=== PATIENT | female | born 1945 | race African-American/Black ===

== ENCOUNTER 2019-11-11 12:14 | Emergency (ER) | payer MEDICARE, SELFPAY ==
[2019-11-11 12:26] VITALS: BP 123/67; PULSE 65; RESP 18; TEMP 36.8; O2SAT 100
--- NOTE | 2019-11-11 12:30 | ED.GENADULT ---
HPI - General Adult General Chief complaint: Ear Stated complaint: foreign object right ear Time Seen by Provider: 11/11/19 12:30 Source: patient and RN notes reviewed Mode of arrival: ambulatory Limitations: no limitations History of Present Illness HPI narrative: 73-year-old -[place] female presents with complaints of RT ear with foreign body with mild pain for 1 day. No treatment. Tonya says she was cleaning out her ear with a q-tip and when she pulled out the q-tip the cotton part was not there. Denies trauma or injury to ear. Denies bleeding, increase hearing loss, or a sense of ear fullness. Denies cough, rhinorrhea, congestion, and sore throat. Denies ear drainage or tinnitus. No high fevers or chills. Denies syncopal episodes, and dizziness. Tolerating po intake well. Remains active. The patient reports she have not been diagnosed with COVID-19. The patient reports she is not waiting for the results of a COVID-19 lab test. The patient reports she do not have fever, chills, weakness, fatigue, myalgia, or facial swelling. The patient reports she do not have a new or worsening cough or shortness of breath. Denies chest pain. The patient reports she do not have any rhinorrhea, congestion, sore throat, nausea, vomiting, abdominal pain, and diarrhea. Denies recent traveling. Denies concerns for COVID-19 or exposures been home with limited outdoor exposure except for essential household needs and return home. At this time, patient is not suspected of having COVID-19. Some parts of this dictation were generated by voice recognition software and may contain typographical and/or grammatical inaccuracies. Related Data Home Medications Medication Instructions Recorded Confirmed amlodipine 5 mg tablet 5 mg PO DAILY 02/24/19 aspirin 81 mg tablet,delayed 81 mg PO DAILY 02/24/19 release atorvastatin 10 mg tablet 10 mg PO DAILY 02/24/19 metoprolol tartrate 25 mg tablet 25 mg PO DAILY 02/24/19 Allergies Allergy/AdvReac Type Severity Reaction Status Date / Time No Known Allergies Allergy Mild Unverified 10/07/12 14:19 Review of Systems Review of Systems: Narrative: CONSTITUTIONAL: Denies fever, chills, sweats. EYES: Denies visual changes, redness, discharge. ENT: Denies sore throat, ear drainage, rhinorrhea, congestion. Complains of foreign body to RT ear. CARDIOVASCULAR: Denies chest pain, palpitations, edema. RESPIRATORY: Denies dyspnea, wheezing, cough. GASTROINTESTINAL: Denies abdominal pain, nausea, vomiting, diarrhea. GENITOURINARY: Denies dysuria, hematuria, abnormal discharge. SKIN: Denies rash or itching. MUSCULOSKELETAL: Denies acute back pain, joint pain, or myalgia. NEUROLOGIC: Denies numbness or focal weakness. PSYCHIATRIC: Denies anxiety or depression. All systems reviewed & are unremarkable except as noted in HPI and below. [facility] Past Medical History Medical History (Updated 11/11/19 @ 12:46 by ARIELLE Peters) Chronic anterior ethmoidal sinusitis Chronic cough Chronic hypertension Hypersomnia Hypoventilation Neck mass Surgical History Surgical History (Updated 11/11/19 @ 12:36 by ARIELLE Peters) History of open heart surgery Quadruple bypass Family History Family History Sibling Patient's sister is in good health Patient's brother is in good health Mother Family history of chronic obstructive pulmonary disease Patient's mother is Social History Social History Smoking status: Former smoker Second hand tobacco smoke exposure: No Smoking end date: 04/08/93 Alcohol intake: never Substance use: never Substance use type: does not use Gender identity (if verbalized by the patient): Female Comments At time of signature, I have reviewed and agree with nursing past medical, surgical, social, and family history.
== END 2019-11-11 12:49 | disposition home or self-care (01) ==
PROVIDERS: Emergency Provider Nurse Practitioner Family; PCP Family Medicine
DX: T16.1XXA Foreign body in right ear, initial encounter (principal); Z79.82 Long term (current) use of aspirin; Z87.891 Personal history of nicotine dependence
CPT/HCPCS: 69200; 99212; G0463

== ENCOUNTER 2021-02-03 14:49 | Outpatient (CLI) | payer MEDICARE, SELFPAY ==
--- NOTE | ~2021-02-03 | XR_ITS ---
XR hip BI 2V w AP pelvis 02/03/2021 15:15 Indication: Hip pain Procedure: AP pelvis and 2 views each hip Comparison: 04/27/2005 Findings: There is mild lumbar spondylosis. There is moderate bilateral osteoarthritis of the hips. P elvic rings are intact. Sacral foramen are symmetric. No fracture or traumatic malalignment. Impression: 1: Moderate osteoarthritis of the hips. Reviewed, dictated and finalized at location A. Impression: 1: Moderate osteoarthritis of the hips.
== END 2021-02-03 14:50 | disposition home or self-care (01) ==
LOC: ANHIMG 14:55
PROVIDERS: PCP Family Medicine; Visit Provider Physician Assistant
DX: M25.551 Pain in right hip (principal); M25.552 Pain in left hip; M54.50 Low back pain, unspecified; W19.XXXA Unspecified fall, initial encounter; M16.0 Bilateral primary osteoarthritis of hip
CPT/HCPCS: 73521

== ENCOUNTER 2021-09-03 17:17 | Emergency (ER) | payer MEDICARE, SELFPAY ==
[2021-09-03 17:25] VITALS: BP 134/72; PULSE 90; RESP 20; TEMP 38.7; O2SAT 99
--- NOTE | 2021-09-03 17:32 | ED.URI ---
HPI - URI/Sore Throat General Chief Complaint: Upper Respiratory Infection Stated Complaint: Cough,Weak Time Seen by Provider: 09/03/21 17:32 Source: patient Mode of arrival: ambulatory Limitations: no limitations History of Present Illness HPI Narrative: 75-year-old female presents with complaint of nasal congestion, cough, body aches, chills, fatigue. Symptoms started yesterday. Denies chest pain and shortness of breath. Has not taken any [id number] medications to treat her symptoms. States that she has been sleeping a lot. All systems reviewed and negative except as noted above. Related Data Home Medications Medication Instructions Recorded Confirmed amlodipine 5 mg tablet 5 mg PO DAILY 02/24/19 09/03/21 aspirin 81 mg tablet,delayed 81 mg PO DAILY 02/24/19 09/03/21 release (Adult Low Dose Aspirin) metoprolol tartrate 25 mg tablet 25 mg PO DAILY 02/24/19 09/03/21 triamterene 37.5 1 cap PO DAILY 02/03/21 09/03/21 mg-hydrochlorothiazide 25 mg capsule Allergies Allergy/AdvReac Type Severity Reaction Status Date / Time No Known Allergies Allergy Mild Verified 09/03/21 17:28 Review of Systems Review of Systems: CONSTITUTIONAL: Reports fever, chills, or sweats. EYES: Denies visual changes, redness, or discharge. ENT: Reports rhinorrhea, congestion. Denies sore throat, or otalgia. CARDIOVASCULAR: Denies chest pain, palpitations, or edema. RESPIRATORY: Reports cough. Denies dyspnea. GASTROINTESTINAL: Denies abdominal pain, nausea, vomiting, or diarrhea. GENITOURINARY: Denies dysuria or hematuria. SKIN: Denies rash or itching. MUSCULOSKELETAL: Denies back pain, joint pain, or myalgia. NEUROLOGIC: Denies headache, numbness, or weakness. PSYCHIATRIC: Denies anxiety or depression. All other systems reviewed are negative, except as documented in HPI. [facility] Past Medical History Medical History Chronic anterior ethmoidal sinusitis Chronic cough Chronic hypertension Coronary artery disease Hypersomnia Hypoventilation Mixed hyperlipidemia Neck mass Surgical History Surgical History History of open heart surgery Quadruple bypass Family History Family History Sibling Patient's sister is in good health Patient's brother is in good health Mother Family history of chronic obstructive pulmonary disease Patient's mother is Father Heart disease Hyperlipidemia Hypertension Social History Social History (Updated 05/09/21 @ 13:50 by Zuri Velasquez) Social History: Smoking status: Former smoker Tobacco type: cigarettes Second hand tobacco smoke exposure: No Smoking end date: 04/08/93 Alcohol intake: never Substance use: never Substance use type: does not use Gender identity (if verbalized by the patient): Female Sexual Orientation (if Verbalized by the Patient): Straight or Heterosexual Comments At time of signature, agree with nursing past medical, surgical, social and family history. There is no relevant family history pertinent to the presenting complaint. Exam Narrative: GENERAL: This is a well-nourished, well-developed patient. Ill-appearing but in no distress. HEAD: normocephalic, atraumatic. EYES: PERRL. Sclera clear/white. Vision is grossly intact. EARS: External ears normal, auditory canals clear and without drainage, TMs normal without perforation. Hearing grossly intact. NOSE: External nose normal with clear nasal drainage, erythema to nares. THROAT: Mucous membranes moist, posterior pharynx clear. NECK: Neck supple, non-tender without lymphadenopathy, masses or thyromegaly. CARDIOVASCULAR: Regular rate and rhythm without murmurs, gallops, or rubs. RESPIRATORY: Clear to auscultation. Breath sounds equal bilaterally. No wheezes, rales, or rhonchi. SKIN: warm, Dry, intact w
[2021-09-03 17:59] VITALS: TEMP 38.7
[2021-09-03] MEDS: ACETAMINOPHEN 500 MG TABLET 1000 MG PO (17:59)
== END 2021-09-03 18:00 | disposition home or self-care (01) ==
PROVIDERS: Emergency Provider Nurse Practitioner Family; PCP Family Medicine
DX: U07.1 COVID-19 (principal); Z87.891 Personal history of nicotine dependence; I10 Essential (primary) hypertension; I25.10 Atherosclerotic heart disease of native coronary artery without angina pectoris; E78.2 Mixed hyperlipidemia; Z95.1 Presence of aortocoronary bypass graft; Z79.82 Long term (current) use of aspirin
CPT/HCPCS: 87426; 87804; 99213; A9270; C9803; G0463

== ENCOUNTER 2022-06-19 13:15 | Outpatient (RCR) | payer MEDICARE, SELFPAY ==
--- NOTE | 2022-05-24 19:45 | PTOPEVAL1 ---
Assessment and note entered by Shiva Encarnacion, PT Evaluation Information Assessment Status Evaluation Diagnosis L hip and low back pain Onset Chronic, but flare up after vacation Subjective Information Patient reports that she has had hip and back issues, but they were manageable until she went on vacation with her family to [place] and she over did it. Patient has radiating pain down the L leg to the toes. She does not use an assistive device. She is having trouble with prolonged time in weightbearing whether standing or walking and sleeping is very uncomfortable. She has had a cortisone shot in her greater trochanter and that has slightly helped after making it worse for 2 days. Reported Pain Level Pain Score 8: Self Report Assessment PT Clinical Summary Miss Bella is a 76 year old female coming into the clinic with a diagnosis of L hip/low back pain . She has tenderness and tightness in the L greater trochanter and piriformis to go along with weakness in the legs, but especially L hip abduction and extension. Physical therapy will work on strengthening and stretching to improve alignment along with take stress off of the hip joint. Manual and modalities as needed for pain. Plan of Care Interventions Electrical Stimulation,Gait Training,Hot Pack/Cold Pack,Manual Therapy,Neuro Re-education,Patient/ Caregiver Education,Therapeutic Activities, Therapeutic Exercise Other Interventions taping PT Services Indicated Yes Treatment Frequency and 1-2x/wk for 8 visit Duration These treatments will address the objective and functional deficits as defined above. The patient will be advanced safely and appropriately in order for the patient to progress towards his/her prior level of function. Additional exercises will be introduced and as well as a comprehensive home exercise program upon discharge, if needed, ?to ensure carryover of functional gains achieved in the clinic. This treatment plan has been reviewed and agreement upon by the patient.
--- NOTE | 2022-06-07 13:55 | PCPTNOTE ---
Pt called and called her appt because she was stuck at her MD appt and was not going to be out on time.
--- NOTE | 2022-06-21 13:34 | PCPTNOTE ---
Patient did not show up for scheduled appointment this date. Left voicemail for patient to call back to be rescheduled or to be discharged.
--- NOTE | 2022-07-11 11:51 | PTOPDC ---
Assessment and note entered by Shiva Encarnacion, PT Evaluation Information Assessment Status Discharge - Pt Not Present Diagnosis L hip and low back pain Onset Chronic, but flare up after vacation Subjective Information Patient did not show up for scheduled re- evaluation today at 1100 so called patient and she reports she is still just in a lot of pain and has been unable to come in secondary to her being sick. Assessment PT Clinical Summary Tonya is a 76 year old female coming into the clinic with a diagnosis of L hip and low back pain with sciatic symptoms. Patient was evaluated on 05/24/22 and has attended 7 sessions with 3 cancellations/no shows. Patient and therapist are in agreement that it would be a good decision to go back to her doctor about less conservative treatment options like injections or a possible hip replacement. Discharged from skilled physical therapy. Plan of Care PT Services Indicated No
== END 2022-07-11 15:02 | disposition home or self-care (01) ==
LOC: ANHPT 13:15
PROVIDERS: PCP Family Medicine; Visit Provider Family Medicine
DX: M70.62 Trochanteric bursitis, left hip (principal); M54.50 Low back pain, unspecified; R26.89 Other abnormalities of gait and mobility
CPT/HCPCS: 97110; 97140; 97161; 97530; 99199

== ENCOUNTER → 2023-01-31 09:20 | Outpatient (CLI) | payer MEDICARE, SELFPAY ==
--- NOTE | ~2023-01-31 | MR_ITS ---
EXAMINATION: MR lumbar spine wo con DATE: 01/31/2023 09:50 INDICATION: Spinal stenosis, lumbar region. Low back pain. TECHNIQUE: Magnetic resonance imaging (MRI) of the lumbar spine was performed without intravenous con trast. Sequences included sagittal T2-weighted FSE, sagittal T2-weighted FS FSE, sagittal T1-weighted FSE, and axial T2-weighted FSE. COMPARISON: None FINDINGS: There is 4 degrees dextrocurvature of lumbar spine. There is 4 mm anterolisthesis of L4 on L5. Vertebral body heights are normal. There is mildly decreased disc height at L2-L3 and L3-L4, mode rately decreased disc height at L4-L5, and mildly decreased disc height at L5-S1. There is ligamentum flavum hypertrophy at the disc levels from L2-L3 through L4-L5. Epidural lipomatosis is noted. The d istal spinal cord signal intensity is normal. The conus medullaris is at L1-L2. There is a 3.8 cm cys t in right kidney. The following disc levels are specifically discussed: L1-L2: The disc does not extend beyond the endplate margin. There is severe bilateral facet joint ost eoarthritis. There is mild left neural foraminal stenosis. There is no central canal stenosis. L2-L3: The disc is bulging. There is severe bilateral facet joint osteoarthritis. There is mild bilat eral neural foraminal stenosis. There is mild central canal stenosis. L3-L4: The disc is bulging and has an annular fissure. There is severe bilateral facet joint osteoart hritis. There is mild bilateral neural foraminal stenosis. There is moderate central canal stenosis. L4-L5: The disc is bulging and has an annular fissure. There is severe bilateral facet joint osteoart hritis. There is mild bilateral neural foraminal stenosis. There is moderate central canal stenosis. L5-S1: The disc is bulging and has an annular fissure. There is bilateral facet joint osteoarthritis. There is mild bilateral neural foraminal stenosis. There is mild central canal stenosis. IMPRESSION: 1. Moderate lumbar spondylosis. Reviewed, dictated and finalized at location E.
== END ==
PROVIDERS: PCP Orthopaedic Surgery; Visit Provider Orthopaedic Surgery
DX: M43.06 Spondylolysis, lumbar region (principal); M48.061 Spinal stenosis, lumbar region without neurogenic claudication
CPT/HCPCS: 72148

== ENCOUNTER 2023-12-27 11:27 | Emergency (ER) | payer MEDICARE, SELFPAY ==
[2023-12-27 11:39] VITALS: BP 130/63; PULSE 67; RESP 16; TEMP 36.6; O2SAT 98
--- NOTE | 2023-12-27 11:40 | ED.SKABFB ---
HPI - Skin/Abscess/Foreign Bdy General Chief complaint: Skin/Abscess/Foreign Body Stated complaint: Rash Time Seen by Provider: 12/27/23 11:40 Source: patient Mode of arrival: ambulatory Limitations: no limitations History of Present Illness HPI narrative: 77-year-old female presents with complaint of itchy rash to bilateral forearms. Started 3 days ago. Patient states she was at her sister's house [place] talking with her outside and that is when she started to itch. Has been applying lidocaine ointment with no relief of symptoms. All systems reviewed and negative except as noted above. Related Data Allergies Allergy/AdvReac Type Severity Reaction Status Date / Time No Known Allergies Allergy Mild Verified 12/27/23 11:30 Review of Systems Review of Systems: CONSTITUTIONAL: Denies fever, chills, or sweats. EYES: Denies visual changes, redness, or discharge. ENT: Denies rhinorrhea, congestion, sore throat, or otalgia. CARDIOVASCULAR: Denies chest pain, palpitations, or edema. RESPIRATORY: Denies cough or dyspnea. GASTROINTESTINAL: Denies abdominal pain, nausea, vomiting, or diarrhea. GENITOURINARY: Denies dysuria or hematuria. SKIN: Reports rash and itching. MUSCULOSKELETAL: Denies back pain, joint pain, or myalgia. NEUROLOGIC: Denies headache, numbness, or weakness. PSYCHIATRIC: Denies anxiety or depression. All other systems reviewed are negative, except as documented in HPI. [facility] Past Medical History Medical History Chronic anterior ethmoidal sinusitis Chronic cough Chronic hypertension Coronary artery disease Hypersomnia Hypoventilation Mixed hyperlipidemia Neck mass Surgical History Surgical History History of open heart surgery Quadruple bypass Family History Family History Sibling Patient's sister is in good health Patient's brother is in good health Mother Family history of chronic obstructive pulmonary disease Patient's mother is Father Heart disease Hyperlipidemia Hypertension Social History Social History Social History: Smoking status: Former smoker Tobacco type: cigarettes Second hand tobacco smoke exposure: No Smoking end date: 04/08/93 Alcohol intake: never Substance use: never Substance use type: does not use Living arrangements: with family Occupation/Education: retired Gender identity (if verbalized by the patient): Female Sexual Orientation (if Verbalized by the Patient): Straight or Heterosexual Comments At time of signature, agree with nursing past medical, surgical, social and family history. There is no relevant family history pertinent to the presenting complaint. Exam Narrative: GENERAL: This is a well-nourished, well-developed patient, in no apparent distress. HEAD: normocephalic, atraumatic. EYES: PERRL. Sclera clear/white. Vision is grossly intact. EARS: External ears normal NOSE: External nose normal NECK: Neck supple, non-tender without lymphadenopathy, masses or thyromegaly. CARDIOVASCULAR: Regular rate and rhythm without murmurs, gallops, or rubs. RESPIRATORY: Clear to auscultation. Breath sounds equal bilaterally. No wheezes, rales, or rhonchi. SKIN: warm, Dry, intact, good texture and turgor. erythematous vesicular rash to anterior aspect bilateral forearms NEURO: awake, alert, and oriented to person, place and time. There were no obvious focal neurologic abnormalities. EXTREMITIES: No joint tenderness, effusion, or edema noted. Course Course Level of Care: Express Care Visit Vital Signs Vital signs: Vital Signs Temperature 36.6 C 12/27/23 11:39 Pulse Rate 67 12/27/23 11:39 Respiratory Rate 16 12/27/23 11:39 Blood Pressure 130/63 09/2
== END 2023-12-27 11:58 | disposition home or self-care (01) ==
PROVIDERS: Emergency Provider Nurse Practitioner Family; PCP Family Medicine
DX: L25.9 Unspecified contact dermatitis, unspecified cause (principal); Z87.891 Personal history of nicotine dependence; I10 Essential (primary) hypertension; I25.10 Atherosclerotic heart disease of native coronary artery without angina pectoris; E78.2 Mixed hyperlipidemia; Z95.1 Presence of aortocoronary bypass graft
CPT/HCPCS: 99213; G0463

== ENCOUNTER 2025-01-12 09:15 | Outpatient (CLI) | payer MEDICARE, SELFPAY ==
--- NOTE | ~2025-01-12 | NM_ITS ---
EXAMINATION: NM marcelle stress w perfusion DATE: 01/12/2025 11:54 INDICATION: Chest pain, unspecified. TECHNIQUE: Rest images were obtained following intravenous administration of 9.6 mCi Tc99m tetrofosmin (Myoview). The patient was infused intravenously with Lexiscan (regadenoson). Then, 31.2 mCi Tc99m tetrofosmin (Myoview) was administered intravenously, and stress images were obtained. Data was recon structed into short axis and horizontal and vertical long axis SPECT images. Gated SPECT images were also obtained. COMPARISON: Myocardial perfusion imaging 10/08/2012 FINDINGS: There is no definite reversible or fixed perfusion abnormality to suggest ischemia or infarction. There is no segmental wall motion abnormality. Left ventricular ejection fraction measures >70%. IMPRESSION: 1. No definite ischemia or infarct. 2. Normal left ventricular ejection fraction measuring >70%. Reviewed, dictated and finalized at location E.
--- NOTE | 2025-01-12 09:21 | ECHO_ITS ---
Patient Info Name: Tonya Bella Age: 79 years : 1945 Gender: Female Ht: 60 in Wt: 162 lbs BSA: 1.79 m2 HR: 64 bpm BP: 144 / 79 mmHg Heart Rhythm: Sinus Rhythm Technical Quality: Fair Exam Date: 01/12/2025 9:31 AM Patient Status: O Admit Date: 01/12/2025 Exam Type: CA echo doppler color flow Complete two-dimensional, color flow and Doppler transthoracic echocardiogram is performed. Staff Referring Physician: Sean Henry DO Shaper Setter: Karen Storey Attending Provider: Sean Henry DO Summary 1. Complete two-dimensional, color flow and Doppler transthoracic echocardiogram is performed. 2. Left ventricular chamber dimension is normal. 3. Left ventricular systolic function is normal, estimated at 65-70. 4. The left ventricular diastolic function is grade I diastolic dysfunction. 5. E/e' 10 is mildly elevated. 6. The mitral valve has a mildly calcified annulus. 7. No pulmonary hypertension, estimated pulmonary arterial systolic pressure is 30 mmHg. Left Ventricle E/e' 10 is mildly elevated. Left ventricular chamber dimension is normal. Left ventricular systolic function is normal, estimated at 65-70. The left ventricular diastolic function is grade I diastolic dysfunction. Right Ventricle Right ventricular chamber dimension is normal. Right ventricular systolic function is normal and with normal TAPSE 1.9 cm. Left Atria Left atrial chamber dimension is normal. Right Atria Right atrial chamber dimension is normal. Aortic Valve The aortic valve is trileaflet. There is no aortic valve stenosis. There is no aortic valve regurgitation. Pulmonic Valve There is no pulmonic regurgitation. Mitral Valve The mitral valve has a mildly calcified annulus. There is no mitral valve stenosis. There is no mitral valve regurgitation. Tricuspid Valve There is no tricuspid valve regurgitation. No pulmonary hypertension, estimated pulmonary arterial systolic pressure is 30 mmHg. Pericardium/Pleural There is no pericardial effusion. Inferior Vena Cava Normal inferior vena cava with >50% collapse upon inspiration consistent with normal right atrial pressure, 5 mmHg. Aorta The aortic root size at the sinus of Valsalva is normal. Left Ventricular Outflow Tract Name Value Normal LVOT 2D LVOT Diameter 2.0 cm LVOT Doppler LVOT Peak Velocity 92 cm/s LVOT Peak Gradient 3 mmHg LVOT Mean Gradient 2 mmHg LVOT VTI 24 cm LVOT VTI/AV VTI Ratio 0.8 LVOT Stroke Volume 72 ml LVOT CO 4.4 l/min LVOT CI 2.4 l/min/m2 Pulmonic Valve Name Value Normal RVOT Doppler RVOT Peak Velocity 64 cm/s RVOT Peak Gradient 2 mmHg PV Doppler PV Peak Velocity 70 cm/s PV Peak Gradient 2 mmHg Mitral Valve Name Value Normal MV Diastolic Function MV E Peak Velocity 71 cm/s MV A Peak Velocity 85 cm/s MV E/A 0.8 MV Decel Time (PW) 282 ms MV Annular TDI MV E/e' (Septal) 12.0 MV E/e' (Lateral) 9.6 MV E/e' (Average) 10.8 Tricuspid Valve Name Value Normal TV Regurgitation Doppler TR Peak Velocity 252 cm/s TR Peak Gradient 25 mmHg Estimated PAP/RSVP RA Pressure 5 mmHg <=5 PA Systolic Pressure 30 mmHg <36 RV Systolic Pressure 30 mmHg <36 TV Annular TDI TV Lateral Farnaz s' Velocity 10.6 cm/s >=9.5 Aorta Name Value Normal Ascending Aorta Ao Root Diameter (MM) 3.0 cm Ao Root Diam Index (MM) 1.7 cm/m2 Aortic Valve Name Value Normal AV Doppler AV Peak Velocity 123 cm/s AV Peak Gradient 6 mmHg AV Mean Gradient 3 mmHg AV VTI 30 cm AV Area (Cont Eq VTI) 2.4 cm2 >=3.0 AV Area (Cont Eq Angus) 2.2 cm2 AV DI (Angus) 0.74 AV Regurgitation 2D LVOT Area 3.0 cm2 Ventricles Name Value Normal LV Dimensions 2D/MM IVS Diastolic Thickness (2D) 0.9 cm 0.6-1.0 LVID Diastole (2D) 4.0 cm 3.8-5.2 LVIW Diastolic Thickness (2D) 0.8 cm 0.6-0.9 LVID Systole (2D) 2.5 cm 2.2-3.5 LVOT Diameter 2.0 cm LV Mass (2D Cubed) 99.19 g 67.00-162.00 LV Mass Index (2D Cubed) 55 g/m2 43-95 Relative Wall Thickness (2D) 0.39 <=0.42 LV Fractional Shortening/Ejection Fraction 2D/MM LV Fractional Shortening (2D) 39 % 27-45 LV EF (2D Teichholz) 70 % LV Diastolic Volume (4C MOD) 69 ml LV EF (4C MOD) 76 % LV Diastolic Volume (2C MOD) 30 ml LV EF (2C MOD) 62 % LV Diastolic Volume (BP MOD) 46 ml 46-106 LV Diastolic Volume Index (BP MOD) 26 ml/m2 29-61 LV Systolic Volume (BP MOD) 14 ml 14-42 LV Systolic Volume Index (BP MOD) 8 ml/m2 8-24 LV EF (BP MOD) 70 % 54-74 LV Diastolic Length (4C) 6.6 cm LV Systolic Length (4C) 5.4 cm LV Stroke Volume (4C MOD) 53 ml Atria Name Value Normal LA Dimensions LA Dimension (MM) 4.0 cm 2.7-3.8 LA Volume (4C A-L) 47 ml LA Volume (BP A-L) 41 ml RA Dimensions RA Area (4C) 13.6 cm2 <=18.0 Report Signatures
--- NOTE | 2025-01-12 09:21 | EST_ITS ---
Patient Info Name: Tonya Bella Age: 79 years : 1945 Gender: Female Ht: 60 in Wt: 162 lbs BSA: 1.79 m2 HR: 56 bpm BP: 133 / 68 mmHg Exam Date: 01/12/2025 9:21 AM Patient Status: O Admit Date: 01/12/2025 Exam Type: CA stress marcelle w NM A regadenoson stress test was performed. Staff Referring Physician: Sean Henry DO Attending Provider: Sean Henry DO Exercise Technologist: Astrid Bella Exercise Physician: Sean Henry DO Summary 1. 1. Negative lexiscan stress test for ischemic ST changes by ECG criteria. 2. 2. Stable hemodynamics throughout the test. 3. 3. Nuclear scan to follow and will be reported separately. Please correlate with it. 4. 4. Patient informed of the above results. Protocol: Lexiscan Stress ECG Details Stage: REST Duration (min): 0 min : 54 sec HR (bpm): 56 SBP (mmHg): 133 DBP (mmHg): 68 Stage: REST Duration (min): 5 min : 50 sec HR (bpm): 57 SBP (mmHg): 133 DBP (mmHg): 68 Stage: STAGE 1 Duration (min): 0 min : 59 sec HR (bpm): 76 SBP (mmHg): 150 DBP (mmHg): 81 Stage: RECOVERY Duration (min): 1 min : 0 sec HR (bpm): 92 SBP (mmHg): 150 DBP (mmHg): 81 Stage: RECOVERY Duration (min): 2 min : 0 sec HR (bpm): 82 SBP (mmHg): 150 DBP (mmHg): 81 Stage: RECOVERY Duration (min): 3 min : 0 sec HR (bpm): 74 SBP (mmHg): 150 DBP (mmHg): 81 Stage: RECOVERY Duration (min): 4 min : 0 sec HR (bpm): 72 SBP (mmHg): 178 DBP (mmHg): 74 Stage: RECOVERY Duration (min): 5 min : 0 sec HR (bpm): 71 SBP (mmHg): 138 DBP (mmHg): 70 Stage: RECOVERY Duration (min): 5 min : 22 sec HR (bpm): 71 SBP (mmHg): 138 DBP (mmHg): 70 Rest HR: 57 bpm Peak HR: 93 bpm Rest Sys BP: 133 mmHg Peak Sys BP: 178 mmHg Max Pred HR: 142 bpm % Max Pred HR: 65 % Target HR: 121 bpm Max RPP: 16,554 bpm*mmHg Termination Reason: Completed protocol Cardiac Symptoms: Shortness of breath Total Time: 1 min : 0 sec Rest Espinal BP: 68 mmHg Peak Espinal BP: 74 mmHg Total Dose: 0.4 mg Resting ECG Sinus bradycardia. Stress ECG No ST changes. Arrhythmias None. Report Signatures
--- OUTSIDE RECORDS SUMMARY | 2025-01-12 09:41 | XMS_ITS | Clinical Summary ---
Author Organization [facility] Address [address] [place] [address] Care Team Providers Care Cotton Sampler Name Role Phone Clau Hyatt MD Primary Care Provider Jeri Olea MD Unavailable [phone] Allergies No known active allergies Medications diclofenac sodium (VOLTAREN) 1 % gel 02/03/2021 Active traMADoL (ULTRAM) 50 mg tablet 02/03/2021 Active amLODIPine (NORVASC) 5 mg tablet Take 1 tablet by mouth twice daily 180 tablet 2 08/08/2022 Active aspirin 81 mg enteric coated tablet Take 1 tablet (81 mg total) by mouth daily 90 tablet 3 11/19/2022 Active metoprolol XL (TOPROL-XL) 25 mg extended release tablet TAKE 1 TABLET BY MOUTH DAILY 90 tablet 3 06/11/2023 Active triamterene-hydro CHLOROthiazide 37.5-25 mg per tabletIndications :Athscl heart disease of [place] coronary artery w/o ang pctrs,Primary hypertension Take 1 tablet by mouth once daily 90 tablet 06/21/2023 Active triamterene-hydro CHLOROthiazide 37.5-25 mg per tablet/capsuleInd ications:Athscl heart disease of [place] coronary artery w/o ang pctrs,Primary hypertension Take 1 tablet/caps ule by mouth daily 30 tablet 06/19/2023 Active atorvastatin (LIPITOR) 80 mg tablet TAKE 1 TABLET BY MOUTH EVERY NIGHT 100 tablet 2 08/07/2023 Active Active Problems Problem Noted Date Diagnosed Date Coronary artery disease with history of myocardial infarction without history of CABG 04/11/2021 Coronary artery disease with history of myocardial infarction without history of CABG 11/27/2018 Assessment & Plan (07/20/2022 11:51 AM CDT): Known case of coronary disease with suffered myocardial infarction past presently doing well having no symptoms of chest pain shortness breath palpitation no angina no ischemia advised to continue same medication and report any new symptoms Lipids abnormal 11/27/2018 Assessment & Plan (07/20/2022 11:51 AM CDT): Patient has abnormal lipids on Lipitor which she is tolerating well and lipids are in a fair range patient to continue Lipitor and low-cholesterol diet Exertional dyspnea 06/19/2016 Fatigue 06/19/2016 Weakness 06/19/2016 Congestive heart failure 11/30/2015 Assessment & Plan (07/20/2022 11:52 AM CDT): Patient has history of LV dysfunction from myocardial ischemia which is improved with a good control of hypertension and patient has lost many lb presently having no orthopnea PND or ankle edema advised to continue same medication and salt restricted diet and watch calories Athscl heart disease of [place] coronary artery w/o ang pctrs 11/30/2015 Hypertension 11/30/2015 Assessment & Plan (07/20/2022 11:52 AM CDT): Longstanding history of hypertension which is under good control with low-dose amlodipine and patient has lost many lb. Patient to continue amlodipine and restricted to salt intake Mitral valve prolapse 11/30/2015 Surgical History Surgery Date Site/Laterality Comments HYSTERECTOMY Hysterectomy - (Added by [facility] Conv) CHOLECYSTECTOMY Cholecystectomy - (Added by [facility] Conv) CORONARY ARTERY BYPASS GRAFT 01/07/2008 - 02/06/2008 CABG - (Added by TW Conv) Medical History Medical History Date Comments CHF (congestive heart failure) (HCC) Atherosclerotic heart diseas e of [place] coronary artery without angina pectoris Essential hypertension MVP (mitral valve prolapse) SOB (shortness of breath) Weakness Fatigue Family History Medical History Relation Name Comments Heart attack Father Heart attack Mother Relation Name Status Comments Father Mother Social History Tobacco Use Types Packs/Day Years Used Date Smoking Tobacco: Never Smokeless Tobacco: Never Alcohol Use Standard Drinks/Week Comments Not Currently 0 (1 standard drink = 0.6 oz pur e alcohol) Comments Unknown Sex and Gender Information Value Date Recorded Sex Assigned at Not on file 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 Gender Identity Not on file Sexual Orientation Not on file Obstetrics History Last Filed Vital Signs Vital Sign Reading Time Taken Comments Blood Pressure 124/74 11/19/2022 3:02 PM CDT Pulse 70 11/19/2022 3:02 PM CDT Temperature 36.2 C (97.1 F) 04/11/2021 2:51 PM OIL RIGGER Respiratory Rate - - Oxygen Saturation 98% 11/19/2022 3:02 PM CDT Inhaled Oxygen Concentration - - Weight 75.5 kg (166 lb 8 oz) 11/19/2022 3:02 PM CDT Height 152.4 cm (5') 11/19/2022 3:02 PM CDT Body Mass Index 32.52 11/19/2022 3:02 PM CDT Plan of Treatment Health Maintenance Due Date Last Done Comments Depression Screening 1945 Fall Risk Assessment 1945 Hepatitis C Screening 1945 Osteoporosis Screening-Bone Density Scan 1945 DTaP/Tdap/Td Vaccine (1 - Tdap) 1957 Hepatitis B Screening 1964 Pneumococcal vaccine 65+ (1 of 1 - PCV) 1996 Zoster Vaccine (1 of 2) 1996 Well Visit 65+ 12/28/2011 Influenza Vaccine (#1) 2024 Insurance [facility] MEDIC[facility] Care Teams Cotton Sampler Relationship Specialty Start Date End Date Clau Hyatt MD [address] [facility] [address] [place] [address] PCP - General Family Medicine 11/24/18 Jeri Olea MD [address] [place] [address] [address] [employer] Administrator Cardiology 11/25/18
== END 2025-01-12 09:16 | disposition home or self-care (01) ==
PROVIDERS: PCP Family Medicine; Visit Provider Internal Medicine Cardiovascular Disease
DX: R06.09 Other forms of dyspnea (principal); R07.9 Chest pain, unspecified
CPT/HCPCS: 78452; 93017; 93306; A9502; J2785